=== PATIENT | male | born 2005 | race Caucasian/White ===

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

== ENCOUNTER 2025-10-10 11:36 | Emergency (ER) | payer BC, OTHER, SELFPAY ==
[2025-10-10 11:38] VITALS: BP 150/95
--- NOTE | 2025-10-10 12:02 | ED.SKININJ ---
HPI-Injury
General
Chief Complaint: Skin Problem
Source: patient
Exam Limitations: none
Time Seen by Provider: 10/10/25 11:54
History of Present Illness-Injury
Initial Injury comments:
20-year-old male type I diabetic presents with recurrent pilonidal cyst. He had one about 2 months ago that was drained at [facility] and had packing. He has in the interim followed up with a general surgeon and had discussion
regarding potential excision versus watch and wait. Decided to wait on but this 1 has reoccurred over the past several days. He denies fever but his sugars have been a little high. No other complaints at this time
Phy Exam
Physical Exam
Physical Exam:
General: Well-appearing male in no acute respiratory distress
HEENT: Normal cephalic skin: Erythema fluctuance and tenderness noted to the superior gluteal cleft mainly on the left side.
Extremities: No cyanosis
Course
Orders/Labs/Results
Orders:
Orders
10/10/25 12:01
HYDROmorphone [Dilaudid] 1 mg IV NOW STA
Vital Signs
Initial and Last Documented VS:
Initial Vital Signs
Temp Pulse Resp BP Pulse Ox
98.3 F 105 20 150/95 97
10/10/25 11:38 10/10/25 11:38 10/10/25 11:38 10/10/25 11:38 10/10/25 11:38
Last Documented Vital Signs
Temp Pulse Resp BP Pulse Ox
98.3 F 105 20 150/95 97
10/10/25 11:38 10/10/25 11:38 10/10/25 11:38 10/10/25 11:38 10/10/25 12:03
MDM/Problems Addressed
Differential Diagnosis Includes:
Infected pilonidal cyst. This requires incision and drainage. Patient in significant pain. Will treat with Dilaudid and plan on draining this.
*Pulse Oximetry
SaO2: 97
Oxygen Mode of Delivery: Room air
Patient hypoxic: no
*Critical Care Note
Total Time (30-74mins, 75-104mins- exclusive of procedures): Not Applicable
Update Note
Update Note:
The area was incised and drained. A large amount of purulent material was expressed from the wound. This was irrigated with saline and a dressing was applied. He was started on Augmentin. Follow-up with general surgery.
ED Attending Note
-
Portions of this chart may have been created with voice recognition software.� Occasional wrong word or��sound alike� substitutions may have occurred due to the inherent limitations of voice recognition software.
Discharge Plan
Departure
Patient Disposition: Home (Routine Discharge)
Date of Disposition: 10/10/25
Time of Disposition: 12:41
Patient with high blood pressure during this ER visit?: No
Discharge Problem:
Pilonidal cyst
Instructions: Skin Abscess
Prescriptions:
New
amoxicillin-pot clavulanate 875-125 mg tablet
1 tab PO BID Qty: 14 0RF
No Action
methylphenidate HCl 10 MG tablet
10 mg PO DAILY
methylphenidate HCl [Ritalin LA] 30 MG capsule,ER biphasic 50-50
30 mg PO DAILY
insulin aspart U-100 [Novolog U-100 Insulin aspart] 100 UNIT/ML solution
amoxicillin-pot clavulanate 1 TABLET tablet
1 tab PO Q12 Qty: 13 0RF
methylprednisolone [Medrol (Darrian)] 4 mg tablets,dose pack
See Rx Instructions .ROUTE .COMPLEX Qty: 21 0RF
Rx Instructions:
for 6 days
Referrals:
UNKNOWN - PT DOES,NOT KNOW [Family Provider]
Activity Restrictions/Additional Instructions:
He may wash with warm soapy water. Take antibiotic as directed. Return if worse otherwise follow-up with surgeon as planned
Interventions
Interventions:
*General Assessment Last Done: 10/10/25 11:38
*Neglect/Abuse Screening Last Done: 10/10/25 11:38
*Risk Screen - Suicide (C-SSRS) Last Done: 10/10/25 11:40
Discharge Date and Time
Print Language: ROMANIAN
[2025-10-10] MEDS: DILAUDID 1 MG IV (12:17)
== END 2025-10-10 13:12 | disposition home or self-care (01) ==
LOC: EMR 11:36
PROVIDERS: EMERGENCY PHYSICIAN Emergency Medicine
DX: L05.91 Pilonidal cyst without abscess (principal); E10.9 Type 1 diabetes mellitus without complications
CPT/HCPCS: 10080; 99284; 96374